=== PATIENT | male | born 1980 | race Caucasian/White ===

== ENCOUNTER 2021-07-24 10:47 | Outpatient (CLI) | payer BC ==
[~2021-07-24] VITALS: Ht 183 cm; Wt 122.7 kg
[2021-07-24 10:42] VITALS: BP 137/78
[2021-07-24] MEDS ORDERED: BAMLANIVIMAB 700 MG/ETESEVIMAB 1,400 MG IN NS IV ONE ×3 (11:00)
[2021-07-24] MEDS ORDERED: diphenhydrAMINE 50 MG/ML INJ (BENADRYL) IV PRN (11:00)
[2021-07-24] MEDS ORDERED: EPINEPHrine INJECTION 1 MG/ML AMP IM PRN (11:00)
[2021-07-24] MEDS ORDERED: ACETAMINOPHEN 500 MG TAB (TYLENOL) PO PRN (11:00)
[2021-07-24] MEDS ORDERED: ONDANSETRON 4 MG/2 ML (SDV) Z0FRAN IV PRN (11:00)
[2021-07-24 12:15] VITALS: BP 123/76
== END 2021-07-24 12:16 | disposition home or self-care (01) ==
LOC: INFUSION 10:47
PROVIDERS: ATTEND Nurse Practitioner Family
DX: U07.1 COVID-19 (principal)